=== PATIENT | male | born 1965 | race Caucasian/White ===

== ENCOUNTER → 2016-12-14 | Outpatient (CLI) | payer OTHER ==
[~2016-12-14] MED LIST: /AMIO20TA OR; ALDA25TA2 OR; ASPI325T OR; ATEN25TA OR; DIGO0.257 OR; DIOV160T5 OR; FLEC150T OR; LANO0.1211 OR; LASI20TA OR; MAGNESIUM OXIDE PO; OMEP20TA7 OR; PRIL20CA OR; Pradaxa; ZOCO40TA OR; [UNRECOGNIZED DRUG - OTHER]; bacitracin ointment; clindamycin; magnesium chloride
== END ==
LOC: M OUTALCOH 07:43
PROVIDERS: ATTEND Psychiatry & Neurology Psychiatry
DX: F10.20 Alcohol dependence, uncomplicated (principal)

== ENCOUNTER 2016-12-23 14:00 | Outpatient (RCR) | payer OTHER | END 2016-12-25 | LOC: M OUTALCOH 14:00 | PROVIDERS: ATTEND Psychiatry & Neurology Psychiatry | DX: F10.20 Alcohol dependence, uncomplicated (principal) ==

== ENCOUNTER → 2017-01-25 | Outpatient (RCR) | payer OTHER | LOC: M OUTALCOH 12-30 13:00 | PROVIDERS: ATTEND Psychiatry & Neurology Psychiatry | DX: F10.20 Alcohol dependence, uncomplicated (principal) ==

== ENCOUNTER 2017-02-22 16:00 | Outpatient (RCR) | payer OTHER | END 2017-02-24 | LOC: M OUTALCOH 16:00 | PROVIDERS: ATTEND Psychiatry & Neurology Psychiatry | DX: F10.20 Alcohol dependence, uncomplicated (principal) ==

== ENCOUNTER 2017-03-20 09:00 | Outpatient (RCR) | payer OTHER | END 2017-03-27 | LOC: M OUTALCOH 09:00 | PROVIDERS: ATTEND Psychiatry & Neurology Psychiatry | DX: F10.20 Alcohol dependence, uncomplicated (principal) ==

== ENCOUNTER 2017-04-04 09:00 | Outpatient (RCR) | payer OTHER | END 2017-04-27 | LOC: M OUTALCOH 09:00 | PROVIDERS: ATTEND Psychiatry & Neurology Psychiatry | DX: F10.20 Alcohol dependence, uncomplicated (principal) ==

== ENCOUNTER → 2018-10-03 | Outpatient (REF) | payer OTHER ==
[2018-10-03 12:25] LABS: BASO # 0.1 10^3/uL (0.0-0.2); EOS # 0.2 10^3/uL (0.0-0.50); EOS % 3.1 % (0.0-3.0); HEMATOCRIT 45.8 % (42.0-52.0); HEMOGLOBIN 15.4 g/dl (13.5-17.5); LYMPH # 1.7 10^3/uL (1.5-4.5); LYMPH % 24.4 % (24.0-44.0); MEAN CORPUSCULAR HEMOGLOBIN 29.4 pg (27.0-33.0); MEAN CORPUSCULAR HGB CONC 33.6 g/dl (32.0-36.5); MEAN CORPUSCULAR VOLUME 87.4 fl (80.0-96.0); MONO # 0.7 10^3/uL (0.0-0.8); MONO % 9.8 % (0.0-5.0); NEUTROPHILS # 4.4 10^3/uL (1.8-7.7); NEUTROPHILS % 61.4 % (36.0-66.0); PLATELET COUNT, AUTOMATED 306 10^3/uL (150-450); RED BLOOD COUNT 5.24 10^6/uL (4.30-6.10); WHITE BLOOD COUNT 7.1 10^3/uL (4.0-10.0)
[2018-10-03 12:30] LABS: ALBUMIN 4.3 GM/DL (3.2-5.2); ALT/SGPT 29 U/L (12-78); BILIRUBIN,TOTAL 0.5 MG/DL (0.2-1.0); BLOOD UREA NITROGEN 20 MG/DL (7-18); CALCIUM LEVEL 9.4 MG/DL (8.5-10.1); CARBON DIOXIDE LEVEL 29 MEQ/L (21-32); CHLORIDE LEVEL 103 MEQ/L (98-107); CHOLESTEROL LEVEL 177 MG/DL (<200); CREATININE FOR GFR 0.97 MG/DL (0.70-1.30); GLOMERULAR FILTRATION RATE > 60.0 (>56); GLUCOSE, FASTING 91 MG/DL (70-100); HDL CHOLESTEROL 51 MG/DL (>40); LDL CHOLESTEROL 112 MG/DL (<100); NON-HDL-C 126 MG/DL; SODIUM LEVEL 138 MEQ/L (136-145); TOTAL PROTEIN 7.4 GM/DL (6.4-8.2); TRIGLYCERIDES LEVEL 71 MG/DL (<150)
== END ==
LOC: M LABDRAW1 10:00
PROVIDERS: ATTEND Physician Assistant
DX: I11.9 Hypertensive heart disease without heart failure (principal)

== ENCOUNTER 2019-01-25 15:39 | Emergency (ER) | payer OTHER ==
[~2019-01-25] VITALS: Ht 190.5 cm; Wt 131.8 kg
[2019-01-25 15:39] VITALS: BP 145/80
[~2019-01-25 15:39] MED LIST changes: -/AMIO20TA OR; +AMIO1TAB OR; +AMLO10TA5 PO; +BACI500O59 EX; +BACIOIN5 OP; +BAYE325T12 PO; +BYST10TA2 PO; +CHLO125TA PO; +OMEP-218 PO; +TELM1TAB37 PO
[2019-01-25] MEDS ORDERED: CALC250T PO (15:55)
[2019-01-25] MEDS ORDERED: FLINCHW PO (15:55)
[2019-01-25] MEDS ORDERED: FOLTTAB9 PO (15:55)
[2019-01-25] MEDS ORDERED: CLOB0.0526 TOP (16:07)
== END 2019-01-25 16:14 | disposition home or self-care (01) ==
LOC: M ED 15:39
DX: Z48.02 Encounter for removal of sutures (principal); I10 Essential (primary) hypertension; R21 Rash and other nonspecific skin eruption; Z98.84 Bariatric surgery status; Z88.0 Allergy status to penicillin

== ENCOUNTER → 2019-03-29 | Outpatient (CLI) | payer OTHER ==
[~2019-03-29] MED LIST changes: +CALC250T PO; +CLOB0.0526 TOP; +FLINCHW PO; +FOLTTAB9 PO
== END ==
LOC: M OUTALCOH 14:49
PROVIDERS: ATTEND Psychiatry & Neurology Psychiatry
DX: Z03.89 Encounter for observation for other suspected diseases and conditions ruled out (principal)

== ENCOUNTER 2020-01-12 18:30 | Emergency (ER) | payer OTHER ==
[~2020-01-12] VITALS: Ht 190.5 cm; Wt 150.0 kg
[2020-01-12] MEDS ORDERED: CLON1TAB8 (19:06)
[2020-01-12] MEDS ORDERED: BUPR1TAB52 (19:06)
[2020-01-12 19:23] LABS: BASO # 0.1 10^3/uL (0.0-0.2); BASO % 0.7 % (0.0-1.0); EOS # 0.6 10^3/uL (0.0-0.5); EOS % 4.9 % (0.0-3.0); HEMOGLOBIN 15.2 g/dl (13.5-17.5); LYMPH # 1.8 10^3/uL (1.5-5.0); LYMPH % 15.4 % (24.0-44.0); MEAN CORPUSCULAR HEMOGLOBIN 29.3 pg (27.0-33.0); MEAN CORPUSCULAR HGB CONC 33.8 g/dl (32.0-36.5); MEAN CORPUSCULAR VOLUME 86.9 fl (80.0-96.0); MONO # 1.1 10^3/uL (0.0-0.8); MONO % 9.6 % (0.0-5.0); NEUTROPHILS % 69.1 % (36.0-66.0); PLATELET COUNT, AUTOMATED 287 10^3/uL (150-450); RED BLOOD COUNT 5.18 10^6/uL (4.30-6.10); WHITE BLOOD COUNT 11.5 10^3/uL (4.0-10.0)
--- NOTE | 2020-01-12 19:25 | REPVR ---
PROCEDURE INFORMATION: Exam: CT Head Without Contrast Exam date and time: 01/12/2020 7:12 PM Age: 55 years old Clinical indication: Syncope and collapse TECHNIQUE: Imaging protocol: Computed tomography of the head without contrast. Radiation optimization: All CT scans at this facility use at least one of these dose optimization techniques: automated exposure control; mA and/or kV adjustment per patient size (includes targeted exams where dose is matched to clinical indication); or iterative reconstruction. COMPARISON: No relevant prior studies available. FINDINGS: Brain: No intracranial hemorrhage or extra-axial fluid collection. No evidence of mass effect or midline shift. Haddad-white matter differentiation is intact. Ventricles: No ventriculomegaly. Bones/joints: No acute osseus lesion or fracture. Sinuses: Mild mucosal thickening of ethmoid sinuses. Mastoid air cells: Unremarkable. Soft tissues: Unremarkable. IMPRESSION: 1. No acute intracranial pathology. 2. Mild mucosal thickening of ethmoid sinuses. Electronically signed by: Gonzalez Smiley On 01/12/2020 19:24:52 PM
[2020-01-12 19:33] LABS: INR 0.97; PROTHROMBIN TIME 12.6 SECONDS (11.8-14.0)
[2020-01-12 19:34] LABS: PARTIAL THROMBOPLASTIN TIME 27.8 SECONDS (25.0-38.4)
[2020-01-12 20:00] VITALS: BP 128/63
[2020-01-12 20:04] LABS: BLOOD UREA NITROGEN 17 MG/DL (7-18); CALCIUM LEVEL 8.7 MG/DL (8.5-10.1); CARBON DIOXIDE LEVEL 28 MEQ/L (21-32); CHLORIDE LEVEL 103 MEQ/L (98-107); CK-MB VALUE MASS 2.5 NG/ML (<3.6); CPK CREATINE PHOSPHOKINASE 142 U/L (39-308); CREATININE FOR GFR 1.16 MG/DL (0.70-1.30); FREE T4 1.31 NG/DL (0.76-1.46); GLOMERULAR FILTRATION RATE > 60.0 (>56); GLUCOSE, FASTING 93 MG/DL (70-100); MAGNESIUM LEVEL 1.9 MG/DL (1.8-2.4); MB/CK RELATIVE INDEX 1.76 (< OR =4); POTASSIUM SERUM 3.6 MEQ/L (3.5-5.1); SODIUM LEVEL 139 MEQ/L (136-145); TROPONIN I < 0.02 NG/ML (< 0.10)
--- NOTE | 2020-01-12 21:14 | ECGEPIP ---
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
--- NOTE | 2020-01-13 02:30 | REP ---
Clinical: Near-syncopal episode . Comparison: 04/07/2016 . Technique: PA and lateral. Findings: The mediastinum and cardiac silhouette are normal. The lung kumar are clear and without acute consolidation, effusion, or pneumothorax. The skeletal structures are intact and normal. Impression: 1. No acute focal consolidation or effusion. 2. No acute cardiopulmonary process. Electronically Signed by Bharath Hay MD 01/13/2020 02:21 A
== END 2020-01-12 20:44 | disposition home or self-care (01) ==
LOC: M ED 18:30
DX: R55 Syncope and collapse (principal); I10 Essential (primary) hypertension; F33.9 Major depressive disorder, recurrent, unspecified; F41.9 Anxiety disorder, unspecified; I48.91 Unspecified atrial fibrillation; K21.9 Gastro-esophageal reflux disease without esophagitis; G47.30 Sleep apnea, unspecified; E66.9 Obesity, unspecified; Z98.84 Bariatric surgery status; Z79.899 Other long term (current) drug therapy; Z79.82 Long term (current) use of aspirin; Z88.0 Allergy status to penicillin; F17.210 Nicotine dependence, cigarettes, uncomplicated

== ENCOUNTER 2020-06-21 18:35 | Inpatient (IN) | payer OTHER ==
[~2020-06-21] VITALS: Ht 190.5 cm; Wt 150.1 kg
[2020-06-21] MEDS: MULTIVITAMINS/MINERALS THERAP 1 TAB PO SCH (09:00)
[~2020-06-21 18:35] MED LIST changes: -AMLO10TA5 PO; +AMLO1TAB25 PO; +BUPR1TAB52 PO; +CLON1TAB8 PO; +FOLIC ACID 1 MG TAB PO SCH
[2020-06-21] MEDS ORDERED: NS 1,000 ML IV ONE (19:00)
[2020-06-21 19:08] LABS: BASO # 0.1 10^3/uL (0.0-0.2); EOS # 0.6 10^3/uL (0.0-0.5); EOS % 5.4 % (0.0-3.0); HEMATOCRIT 51.8 % (42.0-52.0); LYMPH # 2.4 10^3/uL (1.5-5.0); LYMPH % 24.1 % (24.0-44.0); MEAN CORPUSCULAR HEMOGLOBIN 29.1 pg (27.0-33.0); MEAN CORPUSCULAR HGB CONC 32.8 g/dl (32.0-36.5); MEAN CORPUSCULAR VOLUME 88.7 fl (80.0-96.0); MONO # 0.9 10^3/uL (0.0-0.8); MONO % 8.4 % (0.0-5.0); NEUTROPHILS # 6.1 10^3/uL (1.5-8.5); NEUTROPHILS % 60.6 % (36.0-66.0); PLATELET COUNT, AUTOMATED 397 10^3/uL (150-450); RED BLOOD COUNT 5.84 10^6/uL (4.30-6.10); WHITE BLOOD COUNT 10.1 10^3/uL (4.0-10.0)
[2020-06-21] MEDS ORDERED: LORazepam 2 MG TAB PO PRN (19:15)
[2020-06-21 19:56] LABS: ACETAMINOPHEN LEVEL < 2.0 UG/ML (10.0-30.0); ALBUMIN 4.1 GM/DL (3.2-5.2); ALT/SGPT 32 U/L (12-78); BILIRUBIN,DIRECT < 0.1 MG/DL (0.0-0.2); BILIRUBIN,TOTAL 0.3 MG/DL (0.2-1.0); BLOOD UREA NITROGEN 11 MG/DL (7-18); CARBON DIOXIDE LEVEL 23 MEQ/L (21-32); CHLORIDE LEVEL 101 MEQ/L (98-107); CREATININE FOR GFR 1.08 MG/DL (0.70-1.30); ETHYL ALCOHOL (ETHANOL) 0.201 % (0.000-0.010); GLOMERULAR FILTRATION RATE > 60.0 (>56); GLUCOSE, FASTING 105 MG/DL (70-100); POTASSIUM SERUM 3.8 MEQ/L (3.5-5.1); SODIUM LEVEL 135 MEQ/L (136-145); TOTAL PROTEIN 8.3 GM/DL (6.4-8.2)
--- NOTE | 2020-06-21 20:26 | HPEPDOC ---
[facility] Medical History & Physical Date of Admission Jun 21, 2020 Date of Service: Jun 21, 2020 Primary Care Physician: ANDREW DIXON PA-C Attending Physician: DARRELL KRUEGER MD History and Physical TIME OF SERVICE: 930pm CHIEF COMPLAINT: depression HISTORY OF PRESENT ILLNESS: This 55 yr old M has history of depression and alcoholism and was sober for 4 years, but over the last few months he has been drinking heavily daily to escape various stressors. He has been feeling overwhelmed by recent events over the last few months including the COVID pandemic, elections and various other current events. This evening he came to the hospital because his called EMS after he drank 24 beers and took 7mg of clonazepam. He took more clonazepam that he was prescribed because he ran out of alcohol. He is not sure if he took his Wellbutrin and admits to having SI. Currently he denies feeling dizzy, having palpitations, tremors or any other physical symptoms. discussed the case with the poison control center who recommended IVF, serial EKGs and observation for at least 24H with telemetry. REVIEW OF SYSTEMS: 12 point review of systems negative except as listed in HPI PAST MEDICAL/ SURGICAL HISTORY: Chronic depression Depression/dysthymia history of at least one hospitalization Alcohol abuse disorder Chronic hypertension Chronic diastolic CHF / HFpEF Dyslipidemia Fatty liver GERD History of LAD thrombus in 2006 Gastric bypass Class 3 obesity History of ARINA no longer on BIPAP after bypass History of frequent PVCs History of atrial fibrillation, status post cryotherapy ablation no longer requires meds SOCIAL HISTORY: Alcohol abuse Tobacco abuse Father of 2 children FAMILY HISTORY: Premature coronary artery disease ALLERGIES: Please see below. HOME MEDICATIONS: Please see below. PHYSICAL EXAMINATION: Vital Signs Date Time Temp Pulse Resp B/P (MAP) Pulse Ox O2 Delivery O2 Flow Rate FiO2 06/21/20 18:45 154/98 (116) 06/21/20 18:50 78 99 06/21/20 18:51 17 Room Air 06/21/20 19:48 99.1 GEN: well-nourished / well developed/ flat affect INTEGUMENT: not flushed/ not jaundice / + tattoo at right lower arm HEENT: lips acyanotic /mucus membranes moist and pink / sclera anicteric CVS: RRR/NMRG/ radial pulses intact / no lower extremity edema LUNGS: able to speak full sentences without stopping to take a breath / no coughing / lungs are clear to auscultation bilaterally on room air ABDOMEN: Contour ( obese) MSK/EXTREMITIES: NCAT / range of motion intact in all 4 extremities NEURO: CN 2-12 are grossly intact / speech is not dysarthric PSYCH: alert and oriented to person place and time/ able to understand and follow all commands LABORATORY DATA: 06/21/20 18:47 06/21/20 18:46: POC Glucose (Misc Panel) 112H, POC Sodium (Misc Panel) 138, POC Potassium (Misc Panel) 3.4L, POC Chloride (Misc Panel) 99, POC Total CO2 (Misc Panel) 22.0L, POC Blood Urea Nitrogen (Misc Panel 11, POC Ionized Calcium (Misc Panel) 4.6, POC Creatinine (Misc Panel) 1.2, POC Hematocrit (Misc Panel) 55.0H 06/21/20 18:47: Immature Granulocyte % (Auto) 0.5, Neutrophils (%) (Auto) 60.6, Lymphocytes (%) (Auto) 24.1, Monocytes (%) (Auto) 8.4H, Eosinophils (%) (Auto) 5.4H, Basophils (%) (Auto) 1.0, Neutrophils # (Auto) 6.1, Lymphocytes # (Auto) 2.4, Monocytes # (Auto) 0.9H, Eosinophils # (Auto) 0.6H, Basophils # (Auto) 0.1, Nucleated Red Blood Cells % (auto) 0.0, Anion Gap 11, Glomerular Filtration Rate > 60.0, Lactic Acid Level 2.1*H, Calcium Level 9.0, Total Bilirubin 0.3, Direct Bilirubin < 0.1, Aspartate Amino Transf (AST/SGOT) 25, Alanine Aminotransferase (ALT/SGPT) 32, Alkaline Phosphatase 90, Total Protein 8.3H, Albumin 4.1, Albumin/Globulin Ratio 1.0, Thyroid Stimulating Hormone (TSH) 1.120, Salicylates Level 2.0L, Acetaminophen Level < 2.0L, Ethyl Alcohol Level 0.201H 06/21/20 18:49: Bedside Glucose (Misc Panel) 111H ASSESSMENT: is a 55 yr old M w a hx of MDD/dysthymia, HTN, chronic HFpEF, & Class 3 obesity who came to the ER for evaluation after consuming 24 beers and about 7mg of clonazepam; he will be admitted for management of clonazepam OD, SI and alcohol intoxication. PLAN: 1. Clonazepam overdose Plan: admit to PCU / telemetry / f/u serial EKGs, IVF / will ask the day time team to f/u with poison control in the AM 2. Sucidal Ideation / Depression Plan: 1:1 sitter/ will ask the day time team to consult Psych / hold bupropion, clonazepam pending Psych eval 3. Alcohol Intoxication Plan: fall and seizure precautions / MVI, thiamine and folic acid per CINC 4. Lactic Acidosis Likely type B lactic acidosis Plan: IVF / f/u repeat lactic in AM 5. Chronic resistant hypertension / Chronic diastolic CHF Plan: amlodipine, chlorthalidone, nebivolol, telmisartan 6. Class 3 obesity complicates care s/p gastric by pass Plan: f/u A1C / the pt can f/u PCP to discuss diet and exercise recommendations DVT PROPHYLAXIS: lovenox DISPOSITION: possibly IMHU after more than 2 midnight's stay Home Medications Scheduled Amlodipine Besylate (Amlodipine Besylate) 10 Mg Tablet, 10 MG PO DAILY Aspirin (Aspirin) 325 Mg Tablet, 325 MG PO DAILY B12/Levomefolate Calcium/B-6 (Foltx Tablet) 1 Each Tablet, 1 TAB PO DAILY Bupropion HCl (Bupropion HCl Sr) 100 Mg Tab.sr.12h, 100 MG PO BID Calcium Citrate (Calcium Citrate) 250 Mg Tablet, 1,000 MG PO BID Chlorthalidone (Chlorthalidone) 25 Mg Tablet, 12.5 MG PO DAILY Magnesium Chloride (Mag64) 64 Mg Tablet.dr, 64 MG PO BID Nebivolol HCl (Bystolic) 10 Mg Tablet, 10 MG PO DAILY Omeprazole (Omeprazole) 20 Mg Capsule.dr, 20 MG PO DAILY Ped Multivit 43/Iron Fumarate (Flintstones Complete Chew Tab) 18 Mg Tab.chew, 36 MG PO DAILY Telmisartan (Telmisartan) 80 Mg Tablet, 80 MG PO QPM Scheduled PRN Clonazepam (Clonazepam) 1 Mg Tablet, 1 MG PO TID PRN for ANXIETY Allergies Coded Allergies: Penicillins (Verified Allergy, Unknown, 01/11/19) A-FIB/CHADSVASC A-FIB History Current/History of A-Fib/PAF?: No Current PO Anticoag Therapy: No DARRELL KRUEGER MD Jun 21, 2020 20:26
[2020-06-21] MEDS ORDERED: ACETAMINOPHEN TAB 650MG DOSE (2X325MG) PO PRN (20:30)
[2020-06-21] MEDS ORDERED: MAALOX 30 ML SUSP *UDC PO PRN (20:30)
[2020-06-21] MEDS ORDERED: MOM 30ML SUSPENSION UDC PO PRN (20:30)
[2020-06-21 20:34] LABS: AMPHETAMINES LEVEL URINE NEGATIVE (NEGATIVE); BARBITURATES URINE NEGATIVE (NEGATIVE); BENZODIAZEPINES URINE NEGATIVE (NEGATIVE); CANNABINOIDS URINE NEGATIVE (NEGATIVE); COCAINE METABOLITE URINE NEGATIVE (NEGATIVE); METHADONE URINE NEGATIVE (NEGATIVE); OPIATES URINE NEGATIVE (NEGATIVE); PHENCYCLIDINE URINE NEGATIVE (NEGATIVE)
[2020-06-21] MEDS ORDERED: MAGN64TASA PO (20:36)
[2020-06-21] MEDS ORDERED: THIAMINE 100 MG TAB PO SCH (21:00)
[2020-06-21 22:17] VITALS: BP 155/75
[2020-06-21 22:20] VITALS: BP 155/75
[2020-06-21] MEDS ORDERED: SODIUM CHLORIDE 0.9% 1000ML IV ONE (22:30)
[2020-06-21] MEDS ORDERED: NS 500 ML IV SCH (23:30)
[2020-06-22] VITALS (9 sets, daily range): BP systolic 117–164; BP diastolic 62–93
[2020-06-22 05:35] LABS: HEMATOCRIT 45.5 % (42.0-52.0); HEMOGLOBIN 15.4 g/dl (13.5-17.5); MEAN CORPUSCULAR HEMOGLOBIN 30.2 pg (27.0-33.0); MEAN CORPUSCULAR HGB CONC 33.8 g/dl (32.0-36.5); MEAN CORPUSCULAR VOLUME 89.2 fl (80.0-96.0); WHITE BLOOD COUNT 7.7 10^3/uL (4.0-10.0)
[2020-06-22 05:42] LABS: PLATELET COUNT, AUTOMATED 280 10^3/uL (150-450)
[2020-06-22 06:16] LABS: BLOOD UREA NITROGEN 10 MG/DL (7-18); CALCIUM LEVEL 8.7 MG/DL (8.5-10.1); CARBON DIOXIDE LEVEL 26 MEQ/L (21-32); CHLORIDE LEVEL 108 MEQ/L (98-107); CREATININE FOR GFR 1.01 MG/DL (0.70-1.30); GLOMERULAR FILTRATION RATE > 60.0 (>56); GLUCOSE, FASTING 89 MG/DL (70-100); MAGNESIUM LEVEL 1.8 MG/DL (1.8-2.4); POTASSIUM SERUM 4.1 MEQ/L (3.5-5.1); SODIUM LEVEL 140 MEQ/L (136-145)
[2020-06-22] MEDS: ENOXAPARIN 40MG/0.4ML SYRINGE (J1650 PER 10MG) SC SCH (08:51)
[2020-06-22] MEDS: MULTIVITAMINS/MINERALS THERAP 1 TAB PO SCH (09:00)
[2020-06-22] MEDS ORDERED: LORazepam 2 MG TAB PO PRN (11:15)
[2020-06-22] MEDS: THIAMINE 100 MG TAB PO SCH ×2 (12:07→20:54)
[2020-06-22] MEDS: FOLIC ACID 1 MG TAB PO SCH (12:07)
--- NOTE | 2020-06-22 12:17 | MHCRPDOC ---
[facility] Consultation Consultation DATE OF CONSULTATION: 06/22/20 Subjective HPI: Patient presents today with a mental health history due to an overdose of Klonopin. Reportedly, the patient had overdosed on Klonopin 7 milligrams after drinking a stiff amount of alcohol. He states he had a relapse on alcohol but claims he had not tried to kill himself. He reports symptoms that are consistent with depression since the relapse, but denies it prior. Screens negative for bip olar and psychotic disorders. He reports that he didn't remember what he texted to his and what was said. Chart review indicates that he had made statements during that period that this was suicidal in nature. He required medical treatment in order to treat the large alcohol and klonopin ingestion. MEDICATIONS: Currently, taking Clonazepam and Wellbutrin. MEDICAL HISTORY: Patient has a history of depression, anxiety, and other mental problems. He reports that he wants to go home and promises he would not commit suicide. Patient reports a suicide attempt in the distant past on 1987. FAMILY HISTORY: He denies any family history but admits being admitted many years ago for past psychiatric history. 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 Patient is ex- but he denies any combat related trauma. SOCIAL HISTORY - LIVING SITUATION: Patient is currently and has children. SOCIAL HISTORY - SUBSTANCE USE: He also reports significant alcohol use in the past with relapse. Objective Appearance: Well groomed. Well nourished. Appears to be stated age. Behavior: Guarded. Affect: Mildly dyshtymic. Thought Form: Linear and goal directed. Thought Content: Suicidal and homicidal ideation. Perception: No perceptual abnormalities noted. Judgement: Poor judgement. Insight: Poor insight. Assessment F33.8 Other recurrent depressive disorders F10.99 Alcohol use, unspecified with unspecified alcohol-induced disorder Plan Patient will need in-patient psychiatric admissions. Patient is in high risk of overdosing due to his recent relapse, and he is in an extraordinarily high amount of Clonazepam that puts him in further danger. Significant alcohol use and Clonazepam could have very well killed him, but he does not seem to understand the gravity of the situation and other than saying that he needs to get to work, he cannot describe a significantly good situation by which he would be safe at home. Vital Signs Vital Signs Date Time Temp Pulse Resp B/P (MAP) Pulse Ox O2 Delivery O2 Flow Rate FiO2 06/22/20 08:00 98.4 72 20 127/78 (94) 97 Room Air Laboratory Data 24H Labs Laboratory Tests 2 06/21/20 18:46: POC Glucose (Misc Panel) 112H, POC Sodium (Misc Panel) 138, POC Potassium (Misc Panel) 3.4L, POC Chloride (Misc Panel) 99, POC Total CO2 (Misc Panel) 22.0L, POC Blood Urea Nitrogen (Misc Panel 11, POC Ionized Calcium (Misc Panel) 4.6, POC Creatinine (Misc Panel) 1.2, POC Hematocrit (Misc Panel) 55.0H 06/21/20 18:47: Immature Granulocyte % (Auto) 0.5, Neutrophils (%) (Auto) 60.6, Lymphocytes (%) (Auto) 24.1, Monocytes (%) (Auto) 8.4H, Eosinophils (%) (Auto) 5.4H, Basophils (%) (Auto) 1.0, Neutrophils # (Auto) 6.1, Lymphocytes # (Auto) 2.4, Monocytes # (Auto) 0.9H, Eosinophils # (Auto) 0.6H, Basophils # (Auto) 0.1, Nucleated Red Blood Cells % (auto) 0.0, Anion Gap 11, Glomerular Filtration Rate > 60.0, Lactic Acid Level 2.1*H, Calcium Level 9.0, Total Bilirubin 0.3, Direct Bilirubin < 0.1, Aspartate Amino Transf (AST/SGOT) 25, Alanine Aminotransferase (ALT/SGPT) 32, Alkaline Phosphatase 90, Total Protein 8.3H, Albumin 4.1, Albumin/Globulin Ratio 1.0, Thyroid Stimulating Hormone (TSH) 1.120, Salicylates Level 2.0L, Acetaminophen Level < 2.0L, Ethyl Alcohol Level 0.201H 06/21/20 18:49: Bedside Glucose (Misc Panel) 111H 06/21/20 18:54: Estimated Mean Plasma Glucose 97, Hemoglobin A1c 5.0 06/21/20 20:00: Urine Opiates Screen NEGATIVE, Urine Methadone Screen NEGATIVE, Urine Barbiturates Screen NEGATIVE, Urine Phencyclidine Screen NEGATIVE, Urine Amphetamines Screen NEGATIVE, Urine Benzodiazepines Screen NEGATIVE, Urine Cocaine Metabolite Screen NEGATIVE, Urine Cannabinoids Screen NEGATIVE 06/21/20 23:15: Lactic Acid Followup at 4 Hours 1.9 06/22/20 05:00: Nucleated Red Blood Cells % (auto) 0.0, Anion Gap 6L, Glomerular Filtration Rate > 60.0, Calcium Level 8.7, Magnesium Level 1.8 Home Medications Current Medications Current Medications Medications (Trade) Dose Ordered Sig/Anastacia Route PRN Reason Start Time Stop Time Status Last Admin Dose Admin Acetaminophen (Tylenol Tab) 650 mg Q4H PRN PO PAIN OR FEVER 06/21/20 20:30 Al Hydrox/Mg Hydrox/Simethicone (Mylanta) 30 ml DAILY PRN PO DYSPEPSIA 06/21/20 20:30 Enoxaparin Sodium (Lovenox) 40 mg DAILY SC 06/22/20 09:00 06/22/20 08:51 Folic Acid (Folic Acid) 1 mg DAILY PO 06/21/20 09:00 06/22/20 11:14 DC 06/21/20 09:00 Folic Acid (Folic Acid) 1 mg DAILY PO 06/22/20 09:00 06/22/20 12:07 Home Med (Med Rec Complete!) ASDIRECTED XX 06/21/20 20:45 06/21/20 20:39 DC Lorazepam (Ativan) 2 mg ASDIRECTED PRN PO SEE PROTOCOL 06/21/20 19:15 06/22/20 11:15 DC 06/21/20 19:49 Lorazepam (Ativan) 2 mg ASDIRECTED PRN PO SEE PROTOCOL 06/22/20 11:15 Magnesium Hydroxide (Milk Of Magnesia) 30 ml DAILY PRN PO CONSTIPATION 06/21/20 20:30 Multivitamins (Theragram-M) 1 tab DAILY PO 06/21/20 09:00 06/21/20 09:00 Sodium Chloride 500 ml @ 70 mls/hr Q7H9M IV 06/21/20 23:30 06/22/20 06:38 DC 06/21/20 23:51 Thiamine HCl (Thiamine HCl) 100 mg BID PO 06/21/20 21:00 06/22/20 11:14 DC 06/21/20 19:49 Thiamine HCl (Thiamine HCl) 100 mg BID PO 06/22/20 09:00 06/24/20 09:01 06/22/20 12:07 Scheduled Amlodipine Besylate (Amlodipine Besylate) 10 Mg Tablet, 10 MG PO DAILY, (Reported) Aspirin (Aspirin) 325 Mg Tablet, 325 MG PO DAILY, (Reported) B12/Levomefolate Calcium/B-6 (Foltx Tablet) 1 Each Tablet, 1 TAB PO DAILY, (Reported) Bupropion HCl (Bupropion HCl Sr) 100 Mg Tab.sr.12h, 100 MG PO BID, (Reported) Calcium Citrate (Calcium Citrate) 250 Mg Tablet, 1,000 MG PO BID, (Reported) Chlorthalidone (Chlorthalidone) 25 Mg Tablet, 12.5 MG PO DAILY, (Reported) Magnesium Chloride (Mag64) 64 Mg Tablet.dr, 64 MG PO BID, (Reported) Nebivolol HCl (Bystolic) 10 Mg Tablet, 10 MG PO DAILY, (Reported) Omeprazole (Omeprazole) 20 Mg Capsule.dr, 20 MG PO DAILY, (Reported) Ped Multivit 43/Iron Fumarate (Flintstones Complete Chew Tab) 18 Mg Tab.chew, 36 MG PO DAILY, (Reported) Telmisartan (Telmisartan) 80 Mg Tablet, 80 MG PO QPM, (Reported) Scheduled PRN Clonazepam (Clonazepam) 1 Mg Tablet, 1 MG PO TID PRN for ANXIETY, (Reported) Allergies Coded Allergies: Penicillins (Verified Allergy, Unknown, 01/11/19) COLLEEN RASHID DO Jun 22, 2020 12:17
--- NOTE | 2020-06-22 13:29 | ECGEPIP ---
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 Electronically Signed on 06-22-2020 13:29:07 EDT by Kashif Peters
--- NOTE | 2020-06-22 13:34 | ECGEPIP ---
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 No significant change compared with 06/22/2020 at 651 hours. Electronically Signed on 06-22-2020 13:34:01 EDT by Kashif Peters
[2020-06-22] MEDS ORDERED: TELMISARTAN 20 MG TAB PO SCH (18:00)
--- NOTE | 2020-06-22 19:16 | IPNPDOC ---
Text Note Date of Service The patient was seen on 06/22/20. NOTE Subjective: Mr. Solomon is a 55-year-old male patient with a history of hypertension, chronic HF PEF, class III obesity, A. fib status post ablation (per patient), de pression/dysthymia,was brought to the emergency department for evaluation of alcohol intoxication. He apparently had 24 beers along with 7 mg of clonazepam. In ED he has dizziness, palpitations and tremors. Patient seen at bedside on 06/22/2020. Patient was stable overnight. He denies h aving any nausea, vomiting, chest pain, headache, abdominal pain. He reports his dizziness palpitations and tremors have been resolved. Objective: General: Patient is awake, alert, oriented times three, lying in bed , no apparent distress. Eyes: Conjunctiva clear, pupils equal round and reactive to light and accommodation. ENT: Hearing Bilateral normal. No nasal deviation, oropharynx clear with no lesions/erythema. Neck: supple, no masses, trachea midline, no thyroid nodules, masses, tenderness or enlargement. Cardiovascular: S1, S2, normal rhythm, no murmur, rub, or gallop. Respiratory: Chest is clear to auscultation bilaterally, No rhonchi, wheezes or rubs appreciated. Abdomen: Soft, bowel sounds positive, no bruits. No tenderness on palpation. Liver edge, spleen, kidney not felt, no masses. Extremities: No clubbing or cyanosis. No edema, no tenderness. 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 Cranial nerves III-XII grossly intact. Motor: Strength normal, patient moves all extremities. Skin: No rashes, lesions, ulcerations, subcutaneous nodules or induration. Assessment: Mr. Solomon is a 55-year-old male patient with a history of hypertension, chronic HF PEF, class III obesity, A. fib status post ablation (per patient), depression/dysthymia, resented to the emergency department for evaluation of alcohol intoxication he apparently had 24 beers along with 7 mg of clonazepam. Plan: 1. Suicide ideation/depression: Patient has a sitter. Psychiatric was consulted, and was told he will require admission. We will follow psychiatric recommendations. We'll hold the program, clonazepam for now. 2. Alcohol intoxication/clonazepam overdose Will continue thiamine, folic acid, multivitamin. And was on telemetry overnight and normal. 3. Lactic acidosis: Likely type B lactic acidosis. His lactate was normal this morning. 4. Chronic resistant hypertension: Will continue amlodipine, chlorthalidone, nebivolol, telmisartan. 5. Obesity: Status post gastric bypass. His HbA1c is 5. 6. DVT prophylaxis: Lovenox Disposition: Patient is cleared medically, per psychiatric he is not safe to leave home and needs to be admitted to [facility]. As per Dr. Vasques there are no beds available in [facility] for his admission. So he will be in the hospital overnight and be reevaluated tomorrow morning by psychiatry. VS,Fishbone, I+O VS, Fishbone, I+O Laboratory Tests 06/22/20 05:00 Vital Signs Date Time Temp Pulse Resp B/P (MAP) Pulse Ox O2 Delivery O2 Flow Rate FiO2 06/22/20 16:00 97.9 78 20 163/93 (116) 98 Room Air I&O- Last 24 Hours up to 6 AM 06/22/20 06:00 Intake Total 1000 ml Output Total 0 ml Balance 1000 ml Marcelo Barnes MD Jun 22, 2020 19:16
[2020-06-23] VITALS: BP 166/83
[2020-06-23 04:00] VITALS: BP 164/88
[2020-06-23 06:00] VITALS: BP 144/85
[2020-06-23 06:41] LABS: BLOOD UREA NITROGEN 14 MG/DL (7-18); CALCIUM LEVEL 9.1 MG/DL (8.5-10.1); CARBON DIOXIDE LEVEL 30 MEQ/L (21-32); CHLORIDE LEVEL 104 MEQ/L (98-107); CREATININE FOR GFR 1.04 MG/DL (0.70-1.30); GLOMERULAR FILTRATION RATE > 60.0 (>56); GLUCOSE, FASTING 85 MG/DL (70-100); POTASSIUM SERUM 3.9 MEQ/L (3.5-5.1); SODIUM LEVEL 138 MEQ/L (136-145)
[2020-06-23 08:00] VITALS: BP 145/85
[2020-06-23] MEDS ORDERED: ASPIRIN 325 MG TAB PO SCH (09:00)
[2020-06-23] MEDS ORDERED: amLODIPine 10 MG TAB PO SCH (09:00)
[2020-06-23] MEDS ORDERED: MULTIVITAMINS/MINERALS THERAP 1 TAB PO SCH (09:00)
[2020-06-23] MEDS ORDERED: NEBIVOLOL 5 MG TAB (BYSTOLIC) PO SCH (09:00)
[2020-06-23] MEDS: MULTIVITAMINS/MINERALS THERAP 1 TAB PO SCH (09:00)
[2020-06-23] MEDS ORDERED: CHLORTHALIDONE 12.5MG PER 1/2 TABLET PO SCH (09:00)
--- NOTE | 2020-06-23 09:03 | ECGEPIP ---
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
--- NOTE | 2020-06-23 09:13 | ECGEPIP ---
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
[2020-06-23 09:58] VITALS: BP 145/85
[2020-06-23] MEDS: FOLIC ACID 1 MG TAB PO SCH (09:59)
[2020-06-23] MEDS: THIAMINE 100 MG TAB PO SCH (09:59)
[2020-06-23] MEDS: ENOXAPARIN 40MG/0.4ML SYRINGE (J1650 PER 10MG) SC SCH (10:00)
[2020-06-23 12:00] VITALS: BP 146/79
--- NOTE | 2020-06-23 17:56 | DS.PDOC ---
Discharge Summary General Date of Admission Jun 21, 2020 at 20:22 Date of Discharge Jun 23, 2020 at 3pm Attending Physician: ADELE LÓPEZ MD Discharge Summary PROCEDURES PERFORMED DURING STAY: None. ADMITTING DIAGNOSES: 1. Acute alcohol intoxication 2. Acute intoxication with clonazepam 3. Hypertension 4. Chronic HF PEF 5. Atrial fibrillation status post ablation 6. Anxiety/depression DISCHARGE DIAGNOSES: 1. Hypertension 2. Chronic HF PEF 3. Atrial fibrillation status post ablation 4. Anxiety/depression COMPLICATIONS/CHIEF COMPLAINT: Acute intoxication with alcohol and clonazepam HISTORY OF PRESENT ILLNESS: Mr. Solomon is a 55-year-old male patient who was brought to the emergency department for evaluation off rehabilitation aide/scheduler intoxication, he apparently had 24 beers along with 7 mg of clonazepam. The emergency department he had dizziness, palpitations and tremors. HOSPITAL COURSE: He was admitted to the hospital. And was monitored overnight. He had no acute events overnight. Next morning he was doing well and denies having any nausea, vomiting, abdominal pain, chest pain and his dizziness, palpitation and tremors have resolved. And was cleared medically as he was hav ing no symptoms. Psychiatric consultation was called in to evaluate suicidal tendency. Dr. Vasques had him evaluated and reports he is medically not cleared to go home and needed [facility] admission. Patient stay in the hospital next night as there were no beds and psychiatric unit. DISCHARGE MEDICATIONS: Please see below. ALLERGIES: Please see below. PHYSICAL EXAMINATION ON DISCHARGE: VITAL SIGNS: Please see below. General: Patient is awake, alert, oriented times three, lying in bed , no appa rent distress. Eyes: Conjunctiva clear, pupils equal round and reactive to light and accommodation. ENT: Hearing Bilateral normal. No nasal deviation, oropharynx clear with no lesions/erythema. Cardiovascular: S1, S2, normal rhythm, no murmur, rub, or gallop. Respiratory: Chest is clear to auscultation bilaterally, No rhonchi, wheezes or rubs appreciated. Abdomen: Soft, bowel sounds positive, no bruits. No tenderness on palpation. Liver edge, spleen, kidney not felt, no masses. Extremities: No clubbing or cyanosis. No edema, no tenderness. Central nervous system (STATION CAPTAIN): Awake, alert and fully oriented. Skin: No rashes, lesions, ulcerations, subcutaneous nodules or induration. LABORATORY DATA: Please see below. IMAGING: None done PROGNOSIS: Good ACTIVITY: As tolerated. DIET: Low-sodium diet DISCHARGE PLAN: Follow up with your PCP on discharge from [facility] in 3-5 days. DISPOSITION: . DISCHARGE INSTRUCTIONS: 1. Follow-up with your PCP in 3-5 days on discharge from hospital ITEMS TO FOLLOWUP ON ON OUTPATIENT: 1. Follow-up with psychiatric outpatient after discharge from [facility]. DISCHARGE CONDITION: Stable. TIME SPENT ON DISCHARGE: Greater than 30 minutes. Vital Signs/I&Os Vital Signs Date Time Temp Pulse Resp B/P (MAP) Pulse Ox O2 Delivery O2 Flow Rate FiO2 06/23/20 12:00 65 146/79 06/23/20 12:00 97.3 18 97 Room Air I&O- Last 24 Hours up to 6 AM 06/23/20 06:00 Intake Total 1140 ml Output Total 500 ml Balance 640 ml Laboratory Data Labs 24H Laboratory Tests 2 06/23/20 05:38: Anion Gap 4L, Glomerular Filtration Rate > 60.0, Calcium Level 9.1 CBC/BMP Laboratory Tests 06/23/20 05:38 Discharge Medications Scheduled Amlodipine Besylate (Amlodipine Besylate) 10 Mg Tablet, 10 MG PO DAILY, (Reported) Aspirin (Aspirin) 325 Mg Tablet, 325 MG PO DAILY, (Reported) B12/Levomefolate Calcium/B-6 (Foltx Tablet) 1 Each Tablet, 1 TAB PO DAILY, (Reported) Bupropion HCl (Bupropion HCl Sr) 100 Mg Tab.sr.12h, 100 MG PO BID, (Reported) Calcium Citrate (Calcium Citrate) 250 Mg Tablet, 1,000 MG PO BID, (Reported) Chlorthalidone (Chlorthalidone) 25 Mg Tablet, 12.5 MG PO DAILY, (Reported) Magnesium Chloride (Mag64) 64 Mg Tablet.dr, 64 MG PO BID, (Reported) Nebivolol HCl (Bystolic) 10 Mg Tablet, 10 MG PO DAILY, (Reported) Omeprazole (Omeprazole) 20 Mg Capsule.dr, 20 MG PO DAILY, (Reported) Ped Multivit 43/Iron Fumarate (Flintstones Complete Chew Tab) 18 Mg Tab.chew, 36 MG PO DAILY, (Reported) Telmisartan (Telmisartan) 80 Mg Tablet, 80 MG PO QPM, (Reported) Allergies Coded Allergies: Penicillins (Verified Allergy, Unknown, 01/11/19) Marcelo Barnes MD Jun 23, 2020 17:56
[2020-06-24] MEDS ORDERED: BUPR1TAB52 PO (13:22)
--- NOTE | 2020-06-25 12:31 | ECGEPIP ---
[facility] Test Date: 2020-06-22 Pat Name: LAWANDA WONG Department: Room: T8528-48 Gender: Male Hotel Superintendent: : [id number] Requested By: DARRELL KRUEGER Order Number: [id number] Reading MD: Kashif Peters Measurements Intervals [place] Rate: 62 P: 51 [place]: 175 QRS: 2 QRSD: 108 T: 6 QT: 418 QTc: 428 Interpretive Statements SINUS RHYTHM Within normal limits. No significant change compared with 06/22/2020 at 1042 hrs. Electronically Signed on 06-25-2020 12:31:05 EDT by Kashif Peters
== END 2020-06-23 15:59 | DRG 918 ==
LOC: EDBD 18:35 → M ED 18:35 → M ED INP 20:22 → ENRESERVTM 20:57 → M PCU 22:13
PROVIDERS: ADMIT Internal Medicine; ATTEND Internal Medicine
DX: T42.4X1A Poisoning by benzodiazepines, accidental (unintentional), initial encounter (principal); E87.2 Acidosis; I50.32 Chronic diastolic (congestive) heart failure; F33.8 Other recurrent depressive disorders; F10.129 Alcohol abuse with intoxication, unspecified; I11.0 Hypertensive heart disease with heart failure; E66.9 Obesity, unspecified; E78.5 Hyperlipidemia, unspecified; K76.0 Fatty (change of) liver, not elsewhere classified; K21.9 Gastro-esophageal reflux disease without esophagitis; Z86.718 Personal history of other venous thrombosis and embolism; Z98.84 Bariatric surgery status; Z79.82 Long term (current) use of aspirin; Z79.899 Other long term (current) drug therapy; Z88.0 Allergy status to penicillin

== ENCOUNTER 2020-06-23 13:56 | Inpatient (IN) | payer OTHER ==
[~2020-06-23] VITALS: Ht 190.5 cm; Wt 147.2 kg
[~2020-06-23 13:56] MED LIST changes: -FOLIC ACID 1 MG TAB PO SCH; +MAGN64TASA PO
[2020-06-23] MEDS ORDERED: traZODone 50 MG TAB PO PRN (14:00)
[2020-06-23] MEDS ORDERED: MAALOX 30 ML SUSP *UDC PO PRN (14:00)
[2020-06-23] MEDS ORDERED: MOM 30ML SUSPENSION UDC PO PRN (14:00)
[2020-06-23] MEDS ORDERED: IBUPROFEN 400 MG TAB PO PRN (14:00)
[2020-06-23] MEDS ORDERED: LORazepam 2 MG TAB PO PRN (14:00)
[2020-06-23] MEDS ORDERED: THIAMINE 100 MG TAB PO SCH (16:15)
--- NOTE | 2020-06-23 16:48 | DS.PDOC ---
Discharge Summary General Date of Admission Jun 23, 2020 at 16:04 Date of Discharge 06/23/2020 at 3 PM. Attending Physician: ADELE LÓPEZ MD Discharge Medications Scheduled Amlodipine Besylate (Amlodipine Besylate) 10 Mg Tablet, 10 MG PO DAILY, (Reported) Aspirin (Aspirin) 325 Mg Tablet, 325 MG PO DAILY, (Reported) B12/Levomefolate Calcium/B-6 (Foltx Tablet) 1 Each Tablet, 1 TAB PO DAILY, (Reported) Bupropion HCl (Bupropion HCl Sr) 100 Mg Tab.sr.12h, 100 MG PO BID, (Reported) Calcium Citrate (Calcium Citrate) 250 Mg Tablet, 1,000 MG PO BID, (Reported) Chlorthalidone (Chlorthalidone) 25 Mg Tablet, 12.5 MG PO DAILY, (Reported) Magnesium Chloride (Mag64) 64 Mg Tablet.dr, 64 MG PO BID, (Reported) Nebivolol HCl (Bystolic) 10 Mg Tablet, 10 MG PO DAILY, (Reported) Omeprazole (Omeprazole) 20 Mg Capsule.dr, 20 MG PO DAILY, (Reported) Ped Multivit 43/Iron Fumarate (Flintstones Complete Chew Tab) 18 Mg Tab.chew, 36 MG PO DAILY, (Reported) Telmisartan (Telmisartan) 80 Mg Tablet, 80 MG PO QPM, (Reported) Allergies Coded Allergies: Penicillins (Verified Allergy, Unknown, 01/11/19) Marcelo Barnes MD Jun 23, 2020 16:48
[2020-06-23 17:25] VITALS: BP 128/83
[2020-06-23] MEDS: THIAMINE 100 MG TAB PO SCH (20:25)
[2020-06-23] MEDS ORDERED: TELMISARTAN 20 MG TAB PO SCH (21:00)
[2020-06-24 06:36] VITALS: BP 124/78
[2020-06-24 08:00] VITALS: BP 130/82
[2020-06-24 08:20] VITALS: BP 140/96
[2020-06-24] MEDS: THIAMINE 100 MG TAB PO SCH (08:20)
[2020-06-24] MEDS ORDERED: NEBIVOLOL 5 MG TAB (BYSTOLIC) PO SCH (09:00)
[2020-06-24] MEDS ORDERED: amLODIPine 10 MG TAB PO SCH (09:00)
[2020-06-24] MEDS ORDERED: FOLIC ACID 1 MG TAB PO SCH (09:00)
[2020-06-24] MEDS ORDERED: FLUBLOK(EGG FREE)(QUAD)INFLUENZA VACC 0.5ML SYRINGE 18YRS & OLDER IM ONE (09:00)
[2020-06-24] MEDS ORDERED: MULTIVITAMINS/MINERALS THERAP 1 TAB PO SCH (09:00)
[2020-06-24] MEDS ORDERED: CHLORTHALIDONE 12.5MG PER 1/2 TABLET PO SCH (09:00)
--- NOTE | 2020-06-24 12:42 | HPEPDOC ---
[facility] Medical History & Physical Date of Admission Jun 24, 2020 Date of Service: Jun 24, 2020 History and Physical CHIEF COMPLAINT: routine medical exam HPI: 55 y/o male with compensated CHF diastolic dysfunction, h/o LAD thrombus, Afib w ablation, follows with Dr. Nguyen has been admitted to [facility]. Medical service was asked to do a medical exam. He denies sob, cp, pressure, tightness, dizziness, lightheadedness, but admits to weight gain after gastric bypass without LE edema and was recently evaluated by his wet wash assembler via telemedicine without changes in his medications. No other acute medical complaints. PAST MEDICAL HISTORY: Chronic depression Depression/dysthymia history of at least one hospitalization suicide attempt drug overdose Alcohol abuse disorder Chronic hypertension Chronic diastolic CHF / HFpEF Dyslipidemia Fatty liver GERD History of LAD thrombus in 2005 Gastric bypass Class 3 obesity History of ARINA no longer on BIPAP after bypass History of frequent PVCs PAST SURGICAL HISTORY: History of atrial fibrillation, status post cryotherapy ablation no longer requires meds SOCIAL HISTORY: Alcohol abuse Tobacco abuse Father of 2 children FAMILY HISTORY: Premature coronary artery disease ALLERGIES: Please see below. HOME MEDICATIONS: Please see below. PHYSICAL EXAMINATION: VITALS: SEE BELOW GEN:aaoX 3 irritable, but cooperative. no respiratory distress HEENT: no JVD moist mucus membranes LUNGS:CTAB HEART:S1S2 RRR ABD:obese soft ntnd + bs EXT:- edema LABORATORY DATA, IMAGING STUDIES: SEE BELOW ASSESSMENT:55 y/o male with compensated CHF diastolic dysfunction, h/o LAD thrombus, Afib w ablation, follows with Dr. Nguyen has been admitted to [facility] for suicide attempt, depression, drug overdose. Medical service was asked to do a medical exam. He denies sob, cp, pressure, tightness, dizziness, lightheadedness, but admits to weight gain after gastric bypass without LE edema and was recently evaluated by his wet wash assembler via telemedicine without changes in his medications. No other acute medical complaints. Depression suicide attempt drug overdose Alcohol abuse disorder Chronic hypertension Chronic diastolic CHF / HFpEF Dyslipidemia Fatty liver GERD History of LAD thrombus in 2005 Gastric bypass Class 3 obesity History of ARINA no longer on BIPAP after bypass History of frequent PVCs Plan: pt has been resumed on all home meds. He is due for blood work and has missed his appt at the [facility] on [facility]. obtain fasting lipid, a1c, cmp, cbc tsh and fax to [facility]. Hospitalist will sign off. pls reconsult if new acute medical issues arise. outpt fu with his pcp within 5-7days of hospital discharge. Vital Signs Vital Signs Date Time Temp Pulse Resp B/P (MAP) Pulse Ox O2 Delivery O2 Flow Rate FiO2 06/24/20 08:21 88 06/24/20 08:20 140/96 06/24/20 06:36 96.6 18 06/23/20 17:25 98 Room Air Home Medications Scheduled Amlodipine Besylate (Amlodipine Besylate) 10 Mg Tablet, 10 MG PO DAILY Aspirin (Aspirin) 325 Mg Tablet, 325 MG PO DAILY B12/Levomefolate Calcium/B-6 (Foltx Tablet) 1 Each Tablet, 1 TAB PO DAILY Bupropion HCl (Bupropion HCl Sr) 100 Mg Tab.sr.12h, 100 MG PO BID Calcium Citrate (Calcium Citrate) 250 Mg Tablet, 1,000 MG PO BID Chlorthalidone (Chlorthalidone) 25 Mg Tablet, 12.5 MG PO DAILY Magnesium Chloride (Mag64) 64 Mg Tablet.dr, 64 MG PO BID Nebivolol HCl (Bystolic) 10 Mg Tablet, 10 MG PO DAILY Omeprazole (Omeprazole) 20 Mg Capsule.dr, 20 MG PO DAILY Ped Multivit 43/Iron Fumarate (Flintstones Complete Chew Tab) 18 Mg Tab.chew, 36 MG PO DAILY Telmisartan (Telmisartan) 80 Mg Tablet, 80 MG PO QPM Allergies Coded Allergies: Penicillins (Verified Allergy, Unknown, 01/11/19) A-FIB/CHADSVASC A-FIB History Current/History of A-Fib/PAF?: Yes Current PO Anticoag Therapy: No Age/Risk Factor Scoring CHADSVASC: CHADSVASC Response (Comments) Value Age Risk Factor Age < 65 years old 0 Gender Risk Factor Male 0 Hx of CHF Yes 1 Hx of HTN Yes 1 Hx of Stroke/TIA/or VTE No 0 Hx of Diabetes No 0 Hx of Vascular Disease No 0 Total 2 Treatment Treatment ordered: NONE, Other Other anticoagulant ordered: wet wash assembler stopped ac Reason Anticoagulant not given: Other Other reason anticoagulant not: wet wash assembler dr. nguyen s/p ablation not on oral anticoagulation ELI SANTILLAN MD Jun 24, 2020 12:21
[2020-06-24] MEDS ORDERED: BUPR1TAB52 PO (13:22)
--- NOTE | 2020-06-24 13:56 | MHHPEPDOC ---
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 . 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 Per the initial interview today, patient states, "I'm an alcoholic, I relapsed a few months ago and drank too much on Monday and took too much of Klonopin but it was not a suicide attempt." Patient reports that he has been in [facility] for Substance Use Treatment in 2017, then in 12-week treatment at [facility] and went to religiously. He reports that he relapse a few months ago. Was only drinking a a beer, then two, then four and was drinking an average of 8 beers a night, on Monday night he reports drinking a 24 pack. Reports a history of Depression and Anxiety but nothing that was amplified within the last few weeks. He affirms that his drinking is his problem. Psychiatric Review of Systems Depression (2 or more weeks): denies Roseline (4 or more days of): denies Psychosis: denies PTSD: denies Anxiety: gen/non-specific anxiety, situational anxiety, stressor related anxiety, panic attacks Anxiety/ 6 months or more of: restlessness, keyed up, difficulty concentrating, irritability Past Psychiatric History Previous Psychiatric Diagnosis: "Depression and Anxiety" Previous Psychiatric Admissions: One other admission "a few years ago - I was here for only a day" Suicide Attempts: No other gestures or attempts in the past Psychiatric Follow-up: Follows up with Dr. Mijares here in [place], [place] Psychiatric medications: Wellbutrin and Klonopin. Past Medical History Medical Problems PAST MEDICAL HISTORY: Chronic depression Depression/dysthymia history of at least one hospitalization suicide attempt drug overdose Alcohol abuse disorder Chronic hypertension Chronic diastolic CHF / HFpEF Dyslipidemia Fatty liver GERD History of LAD thrombus in 2005 Gastric bypass Class 3 obesity History of ARINA no longer on BIPAP after bypass History of frequent PVCs PAST SURGICAL HISTORY: History of atrial fibrillation, status post cryotherapy ablation no longer requires meds Head Injury: No Seizures: No Hospitalizations: Yes Surgeries: Yes Family Medical/Psychiatric HX Medical Problems Father - History of ETOH, decreased he had cardiac issues and had kidney failure Psychiatric Disorders: No Addiction: Yes (Father - ETOH, ) Suicide Attemps/Completions: Yes (daughter had an attempt and was hospitalized) Addiction History nicotine, alcohol (Substance Use History at [facility], and [facility]. Av erages 8 beers nightly except on this past Monday when he drank 24 beers) Social History Childhood: Born in [place], [place] to both parents. Father . Has one younger brother Abuse/Trauma: Yes Current Living Situation: Live with , and youngest child Education: Some college Employment: Employed Social Support: and kids, mother and brother Legal: None Marital: 31 years. Mental Status Examination General Appearance: disheveled, appears stated age Build: overweight, tall Demeanor: average Eye Contact: average Activity: average Behavior: cooperative Speech: clear, normal volume, reg/rate,rhythm,volume Mood: euthymic Mood "I am feeling good, I don't think I need to be here, I really don't want to hurt myself" Affect: full Thought Process: logical/linear Thought Content (Delusions): none reported Thought Content (Other): none reported Thought Content (Aggressive): none reported Perception (Hallucinations): none reported Perception (Other): none reported Cognition (Impairment of): none reported Cognition(Intelligence Est.): average Oriented: Awake, Alert, Oriented times three Insight: good Judgment: Good Psychosis: Denies Diagnoses Unspecified Depressive Disorder, per patient's report Anxiety Disorder, per patient's report Alcohol Intoxication Alcohol Induced Depressive Disorder Alcohol Use Disorder A-FIB/CHADSVASC A-FIB History Current/History of A-Fib/PAF?: Yes Current PO Anticoag Therapy: No Age/Risk Factor Scoring CHADSVASC: CHADSVASC Response (Comments) Value Age Risk Factor Age < 65 years old 0 Gender Risk Factor Male 0 Hx of CHF Yes 1 Hx of HTN Yes 1 Hx of Stroke/TIA/or VTE No 0 Hx of Diabetes No 0 Hx of Vascular Disease No 0 Total 2 Treatment Treatment ordered: NONE Reason Anticoagulant not given: Not indicated/[id number] Assessment Patient interviewed today and he denies that his overuse of Klonopin was a suicide attempt. Received from Exposure Machine OperatorRaulito who spoke with patient's : 1) She does not believe that this was a suicide attempt 2) Patient wanted her to be at home, she stated "he likes to manipulate" 3) Currently they were given her mother's home, mother is now in penitentiary facility and is working two jobs because they now have 2 mortgages. She fe els that his statements were to get her to come home. 4) counted medications against what he is allowed to have and she reports that he has the correct number of pills and that there is not missing Klonopin tablets 5) feels patient needs to return to AA,. He was sober x 3 years and recently relapsed. At this time, based on the reports that the patient's Klonopin bottle does not have any tablets missing, given that he has been on the medical unit for a few days and is now stating that he has no suicidal ideation, planning or intent. I do not feel that patient meets criteria for involuntary admission or extension of this hospitalization as he has a normal mental status exam. He is alert and oriented, is friendly and cooperative and states that he is "an alcoholic" He declined voluntary extension at the time of his initial interview and I am unable to make a case for holding the patient, given that his counted the pills and doesn't feel that he is suicidal or made a suicidal attempt. She has no concerns with his discharge today. Initial Treatment Plan 1. Patient was admitted on a [9.39] status. 2. Complete history was obtained. 3. With patients permission, family will be contacted and database will be expanded. 4. Patients medication regimen will be reviewed and changed accordingly. 5. Patient will be provided with protected environment. 6. Patient will be treated with individual, group, and milieu therapies. 7. Patient will receive supportive psych-education. 8. Discharge planning will commence immediately. 9. Outpatient follow-up treatment will be strongly recommended. 10. The initial treatment plan will focus initially on: * Depression. * Risk for suicide. ESTIMATED LENGTH OF STAY: 1-2 DAYS. TIME SPENT COUNSELING AND COORDINATING INITIAL CARE: 50 minutes. Vital Signs Vital Signs Date Time Temp Pulse Resp B/P (MAP) Pulse Ox O2 Delivery O2 Flow Rate FiO2 06/24/20 08:21 88 06/24/20 08:20 140/96 06/24/20 06:36 96.6 18 06/23/20 17:25 98 Room Air Medications Scheduled Amlodipine Besylate (Amlodipine Besylate) 10 Mg Tablet, 10 MG PO DAILY, (Reported) Aspirin (Aspirin) 325 Mg Tablet, 325 MG PO DAILY, (Reported) B12/Levomefolate Calcium/B-6 (Foltx Tablet) 1 Each Tablet, 1 TAB PO DAILY, (Reported) Bupropion HCl (Bupropion HCl Sr) 100 Mg Tab.sr.12h, 50 MG PO BID for Depression Calcium Citrate (Calcium Citrate) 250 Mg Tablet, 1,000 MG PO BID, (Reported) Chlorthalidone (Chlorthalidone) 25 Mg Tablet, 12.5 MG PO DAILY, (Reported) Magnesium Chloride (Mag64) 64 Mg Tablet.dr, 64 MG PO BID, (Reported) Nebivolol HCl (Bystolic) 10 Mg Tablet, 10 MG PO DAILY, (Reported) Omeprazole (Omeprazole) 20 Mg Capsule.dr, 20 MG PO DAILY, (Reported) Ped Multivit 43/Iron Fumarate (Flintstones Complete Chew Tab) 18 Mg Tab.chew, 36 MG PO DAILY, (Reported) Telmisartan (Telmisartan) 80 Mg Tablet, 80 MG PO QPM, (Reported) Allergies Coded Allergies: Penicillins (Verified Allergy, Unknown, 01/11/19) MINGO MADDEN NP Jun 24, 2020 13:14
--- NOTE | 2020-06-24 14:30 | MHDSPDOC ---
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 Per the initial interview today, patient states, "I'm an alcoholic, I relapsed a few months ago and drank too much on Monday and took too much of Klonopin but it was not a suicide attempt." Patient reports that he has been in [facility] for Substance Use Treatment in 2017, then in 12-week treatment at [facility] and went to religiously. He reports that he relapse a few months ago. Was only drinking a a beer, then two, then four and was drinking an average of 8 beers a night, on Monday night he reports drinking a 24 pack. Reports a history of Depression and Anxiety but nothing that was amplified within the last few weeks. He affirms that his drinking is his problem. CONSULTANTS INVOLVED: See Medical H + P by Medical Provider and Psychiatric Consult from medical surgical hospital stay. TREATMENT AND PROGRESS ON THE UNIT : Patient was admitted to the [facility] on a 9.39 legal status he was afforded the following treatment modalities: 1) Individual Therapy 2) Group Therapy 3) Medication Management 4) Milieu Therapy 5) Safe Environment HOSPITAL COURSE: Patient was admitted on 06/23/20 and he was seen today and he denies any exacerbation of depressive or anxiety symptoms. States that he has an issue with alcohol and he states that he took too much of his Klonopin. His counted his medications and reported to the Octave Board Assembler that there are no pills missing based on what he is allowed to have and when the bottle was filled at the Pharmacy. I do not feel that patient meets criteria for involuntary admission or extension of this hospitalization as he has a normal mental status exam. He is alert and oriented, is friendly and cooperative and states that he is "an alcoholic" He declined voluntary extension at the time of his initial interview and I am unable to make a case for holding the patient, given that his counted the pills and doesn't feel that he is suicidal or made a suicidal attempt. She has no concerns with his discharge today. DISCHARGE ASSESSMENT: Patient is alert and oriented, denies suicidal ideation, d epression, anxiety and is not observed with abnormal psychiatric symptoms. He does however report a long history of alcohol use and abuse and states that this is what he needs to address following his discharge. MENTAL STATUS EXAMINATION ON DISCHARGE: Patient is a 55-year old male, who is being discharged today, he is calm and cooperative, alert and oriented. He is dressed appropriately, appears his stated age although he is a very tall and large statured man. His hygiene and grooming is fair, eye contact is good. Speech: Is normal rate, tone and volume Language skills are intact Thought processes including: linear and goal oriented Thought content: denies depression, suicidal/homicidal ideation, planning or intent. He is not anxious, denies abnormal psychotic symptoms Abstract reasoning, and computation: Fair Description of associations: None notes, patient denies Description of abnormal or psychotic thoughts: None notes, patient denies Judgment: good Insight: good Orientation: alert and oriented to persona, place, time and situation Recent and remote memory: intact Attention span and concentration: fair Language: expansive Fund of knowledge: good Mood: " anxious to go home Affect: constricted MEDICATIONS ON DISCHARGE: See Medication Reconciliation PLAN/FOLLOWUP ARRANGEMENTS: See Octave Board Assembler's notes, patient states that he will be following up with Dr. Mijares The amount of time spent in the coordination of care for this patient was approximately 15 minutes . Vital Signs/I&Os Vital Signs Date Time Temp Pulse Resp B/P (MAP) Pulse Ox O2 Delivery O2 Flow Rate FiO2 06/24/20 08:21 88 06/24/20 08:20 140/96 06/24/20 06:36 96.6 18 06/23/20 17:25 98 Room Air Medications Scheduled Amlodipine Besylate (Amlodipine Besylate) 10 Mg Tablet, 10 MG PO DAILY, (Reported) Aspirin (Aspirin) 325 Mg Tablet, 325 MG PO DAILY, (Reported) B12/Levomefolate Calcium/B-6 (Foltx Tablet) 1 Each Tablet, 1 TAB PO DAILY, (Reported) Bupropion HCl (Bupropion HCl Sr) 100 Mg Tab.sr.12h, 50 MG PO BID for Depression, #14 Calcium Citrate (Calcium Citrate) 250 Mg Tablet, 1,000 MG PO BID, (Reported) Chlorthalidone (Chlorthalidone) 25 Mg Tablet, 12.5 MG PO DAILY, (Reported) Magnesium Chloride (Mag64) 64 Mg Tablet.dr, 64 MG PO BID, (Reported) Nebivolol HCl (Bystolic) 10 Mg Tablet, 10 MG PO DAILY, (Reported) Omeprazole (Omeprazole) 20 Mg Capsule.dr, 20 MG PO DAILY, (Reported) Ped Multivit 43/Iron Fumarate (Flintstones Complete Chew Tab) 18 Mg Tab.chew, 36 MG PO DAILY, (Reported) Telmisartan (Telmisartan) 80 Mg Tablet, 80 MG PO QPM, (Reported) Allergies Coded Allergies: Penicillins (Verified Allergy, Unknown, 01/11/19) MINGO MADDEN NP Jun 24, 2020 14:30
== END 2020-06-24 14:28 | disposition home or self-care (01) | DRG 881 ==
LOC: M PSY 16:04
PROVIDERS: ADMIT Psychiatry & Neurology Addiction Medicine; ATTEND Psychiatry & Neurology Psychiatry
DX: F32.9 Major depressive disorder, single episode, unspecified (principal); F10.14 Alcohol abuse with alcohol-induced mood disorder; I50.32 Chronic diastolic (congestive) heart failure; F41.9 Anxiety disorder, unspecified; F10.129 Alcohol abuse with intoxication, unspecified; I11.0 Hypertensive heart disease with heart failure; E78.5 Hyperlipidemia, unspecified; K76.0 Fatty (change of) liver, not elsewhere classified; K21.9 Gastro-esophageal reflux disease without esophagitis; E66.9 Obesity, unspecified; Z98.84 Bariatric surgery status; F17.200 Nicotine dependence, unspecified, uncomplicated; Z79.82 Long term (current) use of aspirin; Z79.899 Other long term (current) drug therapy; Z88.0 Allergy status to penicillin; Z86.718 Personal history of other venous thrombosis and embolism

== ENCOUNTER 2021-05-21 06:03 | Emergency (ER) | payer OTHER ==
[~2021-05-21] VITALS: Ht 190.5 cm; Wt 151.8 kg
[2021-05-21 06:06] VITALS: BP 157/96
[2021-05-21] MEDS ORDERED: NEOSPORIN OINT 0.9 GM PKT TOP ONE (07:10)
== END 2021-05-21 07:51 | disposition home or self-care (01) ==
LOC: M ED 06:03
DX: S10.91XA Abrasion of unspecified part of neck, initial encounter (principal); Y04.8XXA Assault by other bodily force, initial encounter; Y92.89 Other specified places as the place of occurrence of the external cause; Y93.9 Activity, unspecified; Y99.0 Civilian activity done for income or pay; I10 Essential (primary) hypertension; K21.9 Gastro-esophageal reflux disease without esophagitis; F41.9 Anxiety disorder, unspecified; F32.9 Major depressive disorder, single episode, unspecified; Z98.84 Bariatric surgery status; E66.9 Obesity, unspecified; Z79.82 Long term (current) use of aspirin; Z79.899 Other long term (current) drug therapy; Z88.0 Allergy status to penicillin

== ENCOUNTER 2022-08-27 20:08 | Emergency (ER) | payer OTHER ==
[~2022-08-27] VITALS: Ht 195.6 cm; Wt 145.5 kg
[~2022-08-27 20:08] MED LIST changes: +OMEP-173 PO; -OMEP-218 PO
[2022-08-27] MEDS ORDERED: HALOPERIDOL 5MG/ML 1ML VIAL IM STA (20:26)
[2022-08-27] MEDS ORDERED: diphenhydrAMINE 50MG/ML VIAL IM STA (20:26)
[2022-08-27] MEDS ORDERED: LORazepam 2 MG/ML VIAL IM STA (20:26)
[2022-08-27 21:02] LABS: HEMATOCRIT 48.1 % (42.0-52.0); HEMOGLOBIN 16.4 g/dl (13.5-17.5); MEAN CORPUSCULAR HEMOGLOBIN 30.1 pg (27.0-33.0); MEAN CORPUSCULAR HGB CONC 34.1 g/dl (32.0-36.5); MEAN CORPUSCULAR VOLUME 88.3 fl (80.0-96.0); PLATELET COUNT, AUTOMATED 333 10^3/uL (150-450); RED BLOOD COUNT 5.45 10^6/uL (4.30-6.10); WHITE BLOOD COUNT 10.3 10^3/uL (4.0-10.0)
[2022-08-27 21:27] LABS: ETHYL ALCOHOL (ETHANOL) 0.221 % (0.000-0.010)
[2022-08-27 21:29] LABS: ACETAMINOPHEN LEVEL < 2.0 UG/ML (10.0-20.0); ALBUMIN 4.1 G/DL (3.2-5.2); ALKALINE PHOSPHATASE 84 U/L (46-116); ALT/SGPT 32 U/L (7.0-40); AST/SGOT 26 U/L (<34); BILIRUBIN,DIRECT 0.1 MG/DL (<0.4); BILIRUBIN,TOTAL 0.3 MG/DL (0.3-1.2); BLOOD UREA NITROGEN 13 MG/DL (9-23); CALCIUM LEVEL 8.9 MG/DL (8.5-10.1); CARBON DIOXIDE LEVEL 17 MMOL/L (20-31); CHLORIDE LEVEL 96 MMOL/L (98-107); CREATININE FOR GFR 1.03 MG/DL (0.70-1.30); GLOMERULAR FILTRATION RATE > 60.0 (>56); GLUCOSE, FASTING 120 MG/DL (60-100); POTASSIUM SERUM 3.4 MMOL/L (3.5-5.1); SALICYLATE LEVEL < 3.0 MG/DL (<30); SODIUM LEVEL 132 MMOL/L (136-145); TOTAL PROTEIN 7.8 G/DL (5.7-8.2)
[2022-08-27] MEDS ORDERED: THIAMINE 100 MG TAB PO ONE (21:30)
[2022-08-27 21:35] LABS: RSV AMPLIFICATION NEGATIVE (NEGATIVE)
[2022-08-27 21:59] LABS: AMPHETAMINES LEVEL URINE NEGATIVE (NEGATIVE); BARBITURATES URINE NEGATIVE (NEGATIVE); BENZODIAZEPINES URINE NEGATIVE (NEGATIVE); CANNABINOIDS URINE NEGATIVE (NEGATIVE); COCAINE METABOLITE URINE NEGATIVE (NEGATIVE); METHADONE URINE NEGATIVE (NEGATIVE); OPIATES URINE NEGATIVE (NEGATIVE); PHENCYCLIDINE URINE NEGATIVE (NEGATIVE)
[2022-08-27] MEDS ORDERED: ACETAMINOPHEN 325 MG TAB PO ONE (22:35)
[2022-08-28] MEDS ORDERED: OXAZEPAM 15MG CAP PO ONE (09:40)
[2022-08-28] MEDS ORDERED: OMEPRAZOLE 20MG CAP PO ONE (09:55)
[2022-08-28] MEDS ORDERED: CHLORTHALIDONE 25 MG TAB PO ONE (09:55)
[2022-08-28] MEDS ORDERED: ASPIRIN 325 MG TAB PO ONE (09:55)
[2022-08-28] MEDS ORDERED: CHLORTHALIDONE 12.5MG PER 1/2 TABLET PO ONE (10:05)
[2022-08-28 11:57] VITALS: BP 149/86
[2022-08-29] MEDS ORDERED: NEBIVOLOL 5 MG TAB (BYSTOLIC) PO SCH (09:00)
== END 2022-08-28 11:59 | disposition home or self-care (01) ==
LOC: M ED 20:08
DX: F10.129 Alcohol abuse with intoxication, unspecified (principal); K21.9 Gastro-esophageal reflux disease without esophagitis; F41.9 Anxiety disorder, unspecified; F32.9 Major depressive disorder, single episode, unspecified; Z98.84 Bariatric surgery status; Z79.82 Long term (current) use of aspirin; Z79.899 Other long term (current) drug therapy; Z88.0 Allergy status to penicillin